=== PATIENT | female | born 2000 | race African-American/Black ===

== ENCOUNTER 2021-01-30 02:13 | Emergency (ER) | payer MEDICAID ==
[~2021-01-30] VITALS: Ht 162.6 cm; Wt 83.5 kg
[2021-01-30 02:19] VITALS: BP 144/99
== END 2021-01-30 03:21 | disposition left against medical advice (07) ==
LOC: ER 02:13
DX: Z53.21 Procedure and treatment not carried out due to patient leaving prior to being seen by health care provider (principal)

== ENCOUNTER 2021-02-02 01:58 | Emergency (ER) | payer MEDICAID ==
[~2021-02-02] VITALS: Ht 162.6 cm; Wt 85.4 kg
[2021-02-02 03:47] VITALS: BP 123/87
[2021-02-02] MEDS ORDERED: METHOCARBAMOL 500MG TABLET PO ONE (05:30)
[2021-02-02] MEDS ORDERED: KETOROLAC 60MG/2ML VIAL IM ONE (05:30)
[2021-02-02] MEDS ORDERED: NAPR-681 MT (06:53)
[2021-02-02] MEDS ORDERED: METH500T6 MT (06:53)
== END 2021-02-02 07:13 | disposition home or self-care (01) ==
LOC: ER 01:58
DX: S16.1XXA Strain of muscle, fascia and tendon at neck level, initial encounter (principal); F12.10 Cannabis abuse, uncomplicated; V49.59XA Passenger injured in collision with other motor vehicles in traffic accident, initial encounter; Y93.89 Activity, other specified; Y92.89 Other specified places as the place of occurrence of the external cause; Y99.8 Other external cause status
CPT/HCPCS: 81025; 96372; 99283; J1885

== ENCOUNTER 2022-08-14 16:35 | Emergency (ER) | payer MEDICAID ==
[~2022-08-14] VITALS: Ht 167.6 cm; Wt 91.0 kg
[~2022-08-14 16:35] MED LIST: METH-773 MT; NAPR-681 MT
[2022-08-14] MEDS ORDERED: METHYLPREDNISOLONE SOD SUCC 125 MG/2 ML VIAL IV ONE (17:15)
[2022-08-14] MEDS ORDERED: DIPHENHYDRAMINE 50MG/ML VIAL IV ONE (17:15)
[2022-08-14] MEDS ORDERED: KETOROLAC 30MG/ML VIAL IV ONE (17:15)
[2022-08-14] MEDS ORDERED: FAMOTIDINE 20MG/2ML VIAL IV ONE (17:15)
[2022-08-14 20:00] VITALS: BP 113/64
[2022-08-14] MEDS ORDERED: BENZ1LOZ73 MT (20:08)
== END 2022-08-14 20:20 | disposition home or self-care (01) ==
LOC: ER 16:35
DX: J03.90 Acute tonsillitis, unspecified (principal); F12.10 Cannabis abuse, uncomplicated
CPT/HCPCS: 71045; 81025; 96374; 96375; 99284; J1200; J1885; J2930; J3490; Z7610

== ENCOUNTER 2023-04-24 14:08 | Emergency (ER) | payer MEDICAID ==
[~2023-04-24] VITALS: Ht 162.6 cm; Wt 91.0 kg
[~2023-04-24 14:08] MED LIST changes: +BENZ1LOZ73 MT
[2023-04-24 14:10] VITALS: BP 142/87; O2SAT 100
[2023-04-24 14:42] LABS: BASOPHILS % 0.6 % (0.0-2.0); EOSINOPHILS % 0.3 % (0.0-5.0); HEMATOCRIT. 40.7 % (36.0-48.0); HEMOGLOBIN. 13.6 g/dL (12.0-16.0); MEAN CORPUSCULAR HEMOGLOBIN 29.5 pg (28.0-32.0); MEAN CORPUSCULAR HGB CONC 33.5 g/dL (31.0-37.0); MEAN CORPUSCULAR VOLUME 88.2 fL (81.0-99.0); MEAN PLATELET VOLUME 10.4 fl (7.4-10.4); MONOCYTES % 12.9 % (2.0-8.0); NEUTROPHILS % 59.2 % (40.0-76.0); PLATELET 223 x1000/uL (130-400); RED BLOOD CELL COUNT 4.61 mill/uL (4.2-5.4); RED CELL DISTRIBUTION WIDTH 13.7 % (11.6-14.6); WHITE BLOOD COUNT 7.4 x1000/uL (4.5-11.0)
[2023-04-24] MEDS ORDERED: MAGNESIUM/ALUMINUM HYDROXIDE/SIMETHICONE 30ML UDC PO ONE (14:45)
[2023-04-24] MEDS ORDERED: ONDANSETRON 4MG ODT PO ONE (14:45)
[2023-04-24] MEDS ORDERED: FAMOTIDINE 20MG TABLET PO ONE (14:45)
[2023-04-24 14:51] LABS: ALANINE AMINOTRANSFERASE 34 IU/L (10-49); ALBUMIN 4.2 g/dL (3.2-4.8); ASPARTATE AMINOTRANSFERASE 33 IU/L (<34); BILIRUBIN TOTAL 0.8 mg/dL (0.1-1.0); CALCIUM 8.8 mg/dL (8.7-10.4); CARBON DIOXIDE 29 mEq/L (21-32); CHLORIDE 106 mEq/L (98-107); CREATININE 0.7 mg/dL (0.6-1.0); GLUCOSE 79 mg/dL (70-105); POTASSIUM 3.7 mEq/L (3.5-5.1); PROTEIN TOTAL 7.4 g/dL (6.0-8.3); SODIUM 139 mEq/L (136-145); UREA NITROGEN BLOOD 9 mg/dL (9-23)
[2023-04-24 15:07] LABS: HCG SCREEN NEGATIVE
[2023-04-24 16:08] LABS: COLOR URINE YELLOW (YELLOW); GLUCOSE URINE NEGATIVE (NEGATIVE); KETONES URINE NEGATIVE (NEGATIVE); NITRITE URINE NEGATIVE (NEGATIVE); OCCULT BLOOD URINE NEGATIVE (NEGATIVE); PROTEIN URINE NEGATIVE (NEGATIVE); SPECIFIC GRAVITY URINE 1.015 (1.005-1.030)
[2023-04-24 16:09] LABS: LEUKOCYTE ESTERASE URINE NEGATIVE (NEGATIVE)
[2023-04-24 16:12] LABS: CLARITY URINE CLOUDY (CLEAR)
[2023-04-24 16:13] LABS: BACTERIA URINE 2+; SQUAMOUS EPITHELIAL CELL URINE 1+ /lpf (RARE/1+)
[2023-04-24 16:14] LABS: AMORPHOUS SEDIMENT URINE 1+ /lpf; RBC URINE 0-2 /hpf (0-2); WBC URINE 0-2 /hpf (0-2); YEAST URINE RARE
[2023-04-24 16:19] LABS: *AMPHETAMINES SCREEN URINE NEGATIVE (NEGATIVE); *BARBITURATES SCREEN URINE NEGATIVE (NEGATIVE); *BENZODIAZEPINES SCREEN URINE NEGATIVE (NEGATIVE); *COCAINE SCREEN URINE NEGATIVE (NEGATIVE); CANNABINOID URINE SCREEN PRESUMPTIVE POSITIVE (NEGATIVE); ECSTASY MDMA SCREEN URINE NEGATIVE (NEGATIVE); METHADONE URINE SCREEN Neg (NEGATIVE); OPIATES URINE SCREEN NEGATIVE (NEGATIVE); PHENCYCLIDINE URINE SCREEN NEGATIVE (NEGATIVE)
[2023-04-24] MEDS ORDERED: MAG-55 MT (17:05)
[2023-04-24] MEDS ORDERED: FAMO-135 MT (17:05)
[2023-04-24] MEDS ORDERED: FAMOTIDINE 20MG TABLET PO NR (17:30)
[2023-04-24] MEDS ORDERED: MAGNESIUM/ALUMINUM HYDROXIDE/SIMETHICONE 30ML UDC PO NR (17:30)
[2023-04-24] MEDS ORDERED: ONDANSETRON 4MG ODT PO NR (17:30)
[2023-04-24 17:34] VITALS: PULSE 78; RESP 16; TEMP 98.7
== END 2023-04-24 17:35 | disposition home or self-care (01) ==
LOC: ER 14:08
DX: K29.70 Gastritis, unspecified, without bleeding (principal); F12.10 Cannabis abuse, uncomplicated; Z20.822 Contact with and (suspected) exposure to COVID-19
CPT/HCPCS: 80053; 80305; 81003; 81025; 80320; 84703; 83690; 85025; 87804 ×2; 36415; 99284; 87426; Q0162; C9803; G0480